=== PATIENT | male | born 1990 | race Caucasian/White ===

== ENCOUNTER 2021-07-31 10:47 | Emergency (ER) | payer MEDICAID ==
[~2021-07-31] VITALS: Ht 170.2 cm; Wt 75.3 kg
[2021-07-31 10:55] VITALS: BP 130/89
[2021-07-31] MEDS ORDERED: AMOX-1000 PO (11:23)
[2021-07-31] MEDS ORDERED: NAPR-54 PO (11:23)
[2021-07-31] MEDS ORDERED: OFLO5SOL27 LEFT EAR (11:23)
[2021-07-31 11:34] VITALS: BP 130/89
--- NOTE | 2021-07-31 11:34 | NUR ---
Patient discharged with v/s stable. Written and verbal after care instructions given and explained. Patient alert, oriented and verbalized understanding of instructions. Ambulatory with steady gait. All questions addressed prior to discharge. ID band removed. Patient advised to follow up with PMD. Rx of augmentin, naproxen, ofloxacin given. Patient educated on indication of medication including possible reaction and side effects. Opportunity to ask questions provided and answered.
== END 2021-07-31 11:34 | disposition home or self-care (01) ==
LOC: MED 10:47
DX: H60.92 Unspecified otitis externa, left ear (principal); H72.92 Unspecified perforation of tympanic membrane, left ear
CPT/HCPCS: 99283